=== PATIENT | female | born 1990 | race Native Hawaiian/Other Pacific Islander ===

== ENCOUNTER → 2016-12-18 | Outpatient (CLI) | payer OTHER ==
--- NOTE | 2016-12-18 11:58 | MR ---
EXAMINATION TYPE: MR knee RT wo con DATE OF EXAM: 12/18/2016 11:52 AM COMPARISON: NONE HISTORY: Right knee pain TECHNIQUE: Multiplanar, multiecho imaging of the right knee is performed without IV contrast. FINDINGS: There is only a small amount of joint fluid. There is no significant chondromalacia. There is no evidence of a meniscal tear. Both the anterior and posterior cruciate ligaments are intact. Both the medial and lateral collateral ligament complexes are intact. The iliotibial band inserts nor jaida upon Gerdy's tubercle. The popliteus muscle and tendon are normal. Both the quadriceps and patellar tendons are intact. There is no significant swelling in the Hoffa fa t space. There is no acute osseous lesion. IMPRESSION: NORMAL MRI OF THE RIGHT KNEE.
== END | disposition home or self-care (01) ==
LOC: RADMRIMAIN 10:59
PROVIDERS: ATTEND Physician Assistant
DX: M25.561 Pain in right knee (principal)

== ENCOUNTER 2017-01-24 10:44 | Emergency (ER) | payer OTHER ==
--- NOTE | 2017-01-24 11:12 | ED ---
ENT HPI - General Chief complaint: ENT Stated complaint: RT EAR SWELLING Time Seen by Provider: 01/24/17 10:58 Source: patient, RN notes reviewed Mode of arrival: ambulatory Limitations: no limitations - History of Present Illness Initial comments: This is a 26-year-old female who presents with complaints of right ear pain that started yesterday. She had a recent piercing of the tragus of her ear she did remove the piercing she was seen in outpatient clinic today and advised to come to the emergency department for further evaluation. She complains of right external ear pain some in her pain she has had no overt fevers chills or sweats however. She did receive a injection of Toradol for pain as well as clindamycin 300 mg at the clinic. She does have penicillin ALLERGY but has no other known ALLERGIES to medication she also can say she has swollen neck glands on the right side. She denies any sore throat she states the pain initially was very severe about 10/10 currently is about 2/10. No drainage no discharge. MD complaint: ear pain - Related Data Previous Rx's Medication Instructions Recorded Clindamycin [Cleocin] 300 mg PO Q6H #40 capsule 01/24/17 Ibuprofen [Motrin] 600 mg PO Q6HR PRN #20 tab 01/24/17 Allergies Allergy/AdvReac Type Severity Reaction Status Date / Time Penicillins AdvReac Rash/Hives Verified 01/24/17 11:06 Review of Systems ROS Statement: Those systems with pertinent positive or pertinent negative responses have been documented in the HPI. ROS Other: All systems not noted in ROS Statement are negative. Past Medical History Past Medical History: No Reported History History of Any Multi-Drug Resistant Organisms: None Reported Additional Past Surgical History / Comment(s): left shoulder Past Psychological History: Depression Smoking Status: Current every day smoker Past Alcohol Use History: None Reported Past Drug Use History: None Reported General Exam - General Exam Comments Initial Comments: This is a well little pulmonary awake alert oriented history female Limitations: no limitations General appearance: alert, anxious Head exam: Present: atraumatic, normocephalic Eye exam: Present: normal appearance, PERRL, EOMI Pupils: Present: normal accommodation ENT exam: Present: normal oropharynx, mucous membranes moist, TM's normal bilaterally, other (MH the external right ear reveals erythema and some edema noted to the entire year including the tragus and pinna no obvious foreign body no fluctuance no drainable abscesses. Noted discharge seen. This does extend into the external auditory canal but not down to the tympanic membrane. No exudate is seen in the canal.) Neck exam: Present: tenderness, full ROM, lymphadenopathy, other (Tender anterior cervical lymphadenopathy tender preauricular nodes). Absent: meningismus Respiratory exam: Absent: respiratory distress, wheezes, rales, rhonchi, stridor Cardiovascular Exam: Present: regular rate, normal rhythm, normal heart sounds. Absent: systolic murmur, diastolic murmur, rubs, gallop, clicks Extremities exam: Present: normal inspection, full ROM, normal capillary refill. Absent: tenderness, pedal edema, joint swelling, calf tenderness Back exam: Absent: tenderness Neurological exam: Present: alert, oriented X3, CN II-XII intact Psychiatric exam: Present: normal affect, normal mood Skin exam: Present: warm, dry, intact, other (Erythema to the external ear is noted above) Course Vital Signs 01/24/17 10:45 Temperature 100.8 F H Pulse Rate 94 Respiratory 20 Rate Blood Pressure 126/82 O2 Sat by Pulse 98 Oximetry Medical Decision Making - Medical Decision Making The patient is feeling improved at this time she'll be discharged on appropriate antibiotics and anti-inflammatories. She is a follow-up with her doctor and return if any problems or if the symptoms get worse or do not improve. - Lab Data Result diagrams: 01/24/17 11:20 01/24/17 11:20 Lab Results 01/24/17 01/24/17 01/24/17 Range/Units 11:20 11:20 11:20 WBC 10.2 (3.8-10.6) k/uL RBC 4.01 (3.80-5.40) m/uL Hgb 12.8 (11.4-16.0) gm/dL Hct 36.3 (34.0-46.0) % MCV 90.4 D (80.0-100.0) fL MCH 31.9 (25.0-35.0) pg MCHC 35.2 (31.0-37.0) g/dL RDW 12.9 (11.5-15.5) % Plt Count 211 (150-450) k/uL Neutrophils % 82 % Lymphocytes % 9 % Monocytes % 6 % Eosinophils % 1 % Basophils % 0 % Neutrophils # 8.4 H (1.3-7.7) k/uL Lymphocytes # 0.9 L (1.0-4.8) k/uL Monocytes # 0.7 (0-1.0) k/uL Eosinophils # 0.1 (0-0.7) k/uL Basophils # 0.0 (0-0.2) k/uL Sodium 140 (137-145) mmol/L Potassium 3.7 (3.5-5.1) mmol/L Chloride 107 (98-107) mmol/L Carbon Dioxide 24 (22-30) mmol/L Anion Gap 9 mmol/L BUN 9 (7-17) mg/dL Creatinine 0.56 (0.52-1.04) mg/dL Est GFR (MDRD) Af Amer >60 (>60 ml/min/1.73 sqM) Est GFR (MDRD) Non-Af >60 (>60 ml/min/1.73 sqM) Glucose 111 H (74-99) mg/dL Calcium 9.0 (8.4-10.2) mg/dL Total Bilirubin 0.4 (0.2-1.3) mg/dL AST 18 (14-36) U/L ALT 23 (9-52) U/L Alkaline Phosphatase 68 (38-126) U/L Total Creatine Kinase 208 H (30-135) U/L CK-MB (CK-2) 0.5 (0.0-2.4) ng/mL CK-MB (CK-2) Rel Index 0.2 Total Protein 7.1 (6.3-8.2) g/dL Albumin 4.1 (3.5-5.0) g/dL Disposition Clinical Impression: Otitis externa, Cellulitis of right ear Disposition: HOME SELF-CARE Condition: Good Instructions: Cellulitis (ED), Otitis Externa (ED) Prescriptions: Clindamycin [Cleocin] 300 mg PO Q6H #40 capsule Ibuprofen [Motrin] 600 mg PO Q6HR PRN #20 tab PRN Reason: Pain
[2017-01-24 11:41] LABS: Basophils % (A) 0 %; CH 31.4; CHCM 34.8; Eosinophils # (A) 0.1 k/uL (0-0.7); Eosinophils % (A) 1 %; HCT 36.3 % (34.0-46.0); HDW 2.23; HGB 12.8 gm/dL (11.4-16.0); Luc # (Auto) 0.15; Luc % (Auto) 2; Lymphocytes # (A) 0.9 k/uL (1.0-4.8); Lymphocytes % (A) 9 %; MCH 31.9 pg (25.0-35.0); MCHC 35.2 g/dL (31.0-37.0); Mean Platelet Volume 7.6; Monocytes # (A) 0.7 k/uL (0-1.0); Monocytes % (A) 6 %; Neutrophils # (A) 8.4 k/uL (1.3-7.7); Neutrophils % (A) 82 %; RBC 4.01 m/uL (3.80-5.40); RDW 12.9 % (11.5-15.5); WBC 10.2 k/uL (3.8-10.6); WBC (Perox) 10.42
[2017-01-24 11:45] LABS: MCV 90.4 fL (80.0-100.0)
[2017-01-24 11:49] LABS: ALT 23 U/L (9-52); AST 18 U/L (14-36); Alkaline Phosphatase 68 U/L (38-126); Anion Gap 9 mmol/L; Blood Urea Nitrogen 9 mg/dL (7-17); Carbon Dioxide 24 mmol/L (22-30); Chloride 107 mmol/L (98-107); Glucose 111 mg/dL (74-99); Non-African American GFR(MDRD) >60 (>60 ml/min/1.73 sqM); Potassium 3.7 mmol/L (3.5-5.1); Sodium 140 mmol/L (137-145); Total Bilirubin 0.4 mg/dL (0.2-1.3); Total Protein 7.1 g/dL (6.3-8.2)
[2017-01-24 12:13] LABS: Creatine Kinase MB 0.5 ng/mL (0.0-2.4)
[2017-01-24 12:50] VITALS: BP 107/62; PULSE 78; RESP 18; TEMP 98.1
== END 2017-01-24 12:45 | disposition home or self-care (01) ==
LOC: EC 10:44
DX: H60.91 Unspecified otitis externa, right ear (principal); H60.11 Cellulitis of right external ear; F17.200 Nicotine dependence, unspecified, uncomplicated; Z88.0 Allergy status to penicillin
CPT/HCPCS: 99283; 96365; 36415; 80053; 82550; 82553; 85025; 87040; J0696

== ENCOUNTER → 2018-02-21 | Outpatient (CLI) | payer OTHER ==
--- NOTE | 2018-02-21 15:48 | US ---
EXAMINATION TYPE: US pelvic complete DATE OF EXAM: 02/21/2018 COMPARISON: US dictated 11/06/2014 CLINICAL HISTORY: N94.6 Dysmenorrhea. TECHNIQUE: Transabdominal (TA). Date of LMP: 02/11/2018 EXAM MEASUREMENTS: Uterus: 10.0 x 3.9 x 5.4 cm Endometrial Stripe: 1.1 cm Right Ovary: 2.8 x 2.9 x 2.4 cm Left Ovary: 3.8 x 1.5 x 2.4 cm 1. Uterus: Anteverted wnl 2. Endometrium: wnl 3. Right Ovary: wnl 4. Left Ovary: wnl 5. Bilateral Adnexa: wnl 6. Posterior cul-de-sac: no free fluid Probable follicle associated with the right ovary. IMPRESSION: Small follicle associated with the right ovary. Follow-up as indicated.
== END | disposition home or self-care (01) ==
LOC: RADUSWWP 15:06
PROVIDERS: ATTEND Family Medicine
DX: N94.6 Dysmenorrhea, unspecified (principal)
CPT/HCPCS: 76856

== ENCOUNTER → 2018-02-28 | Outpatient (CLI) | payer OTHER ==
--- NOTE | 2018-02-28 16:12 | XR ---
Right hip HISTORY: Right hip pain 2 views of the right hip Bone mineralization, joint spaces and alignment are maintained. No fracture or dislocation. IMPRESSION: Normal right hip.
--- NOTE | 2018-02-28 16:13 | XR ---
Lumbar spine HISTORY: Back pain 3 views of the lumbar spine Bone mineralization, joint spaces and alignment are maintained. Disc spaces are normal. IMPRESSION: Normal lumbar spine.
== END | disposition home or self-care (01) ==
LOC: RADXRMAIN 15:36
PROVIDERS: ATTEND Physician Assistant Medical
DX: M25.551 Pain in right hip (principal); M54.5 Low back pain
CPT/HCPCS: 72100; 73502

== ENCOUNTER → 2019-05-25 | Outpatient (CLI) | payer OTHER ==
--- NOTE | 2019-05-25 13:51 | XR ---
EXAMINATION TYPE: XR cervical spine comp DATE OF EXAM: 05/25/2019 TECHNIQUE: Frontal, lateral, oblique, swimmers, and open mouth view of the cervical spine are obtaine d. HISTORY: M542 CERVICALGIA COMPARISON: None FINDINGS: The cervical spine is visualized in its entirety from C1 thru the top of T1 level, it is s atisfactory in alignment without evidence of acute fracture or dislocation. The pre-vertebral soft t issue appears within normal limits. The C1-C2 articulation is within normal limits on the open mouth view. Mild left-sided neural foraminal narrowing at C3-4. IMPRESSION: Mild left-sided neural foraminal narrowing at C3-4. If symptoms persist, MRI of the cervi davian spine may be obtained.
== END | disposition home or self-care (01) ==
LOC: RADXRYALE 13:10
PROVIDERS: ATTEND Physician Assistant
DX: M48.02 Spinal stenosis, cervical region (principal)
CPT/HCPCS: 72050

== ENCOUNTER → 2021-04-11 | Outpatient (CLI) | payer BC, OTHER | END | disposition home or self-care (01) | DX: N64.4 Mastodynia (principal) ==

== ENCOUNTER → 2021-07-28 | Outpatient (CLI) | payer BC, OTHER ==
--- NOTE | 2021-07-28 14:10 | XR ---
EXAMINATION TYPE: XR shoulder complete RT DATE OF EXAM: 07/28/2021 CLINICAL HISTORY: pain TECHNIQUE: Three views of the right shoulder are obtained. COMPARISON: None FINDINGS: There is no acute fracture/dislocation evident. The acromioclavicular and glenohumeral michele int spaces appear within normal limits. The visualized ribs are intact and unremarkable. IMPRESSION: 1. There is no acute fracture or dislocation. ICD 10 NO FRACTURE, INITIAL EVALUATION
--- NOTE | 2021-07-28 16:04 | XR ---
EXAMINATION TYPE: XR lumbosacral spine min 4V DATE OF EXAM: 07/28/2021 CLINICAL HISTORY: pain COMPARISON: NONE TECHNIQUE: Frontal, lateral, and oblique images of the lumbar spine are obtained. FINDINGS: There are 5 lumbar type vertebral bodies identified. The lumbar spine shows satisfactory alignment without evidence of acute fracture or dislocation. Vertebral body heights are within normal limits. Disc spaces are well preserved. The overlying soft tissue appears unremarkable. IMPRESSION: No acute fracture or dislocation is seen in the lumbar spine.ICD 10 NO FRACTURE, INITIAL EVALUATION
== END | disposition home or self-care (01) ==
LOC: RADXRYALE 13:10
PROVIDERS: ATTEND Family Medicine
DX: M25.511 Pain in right shoulder (principal); M54.50 Low back pain, unspecified
CPT/HCPCS: 72110

== ENCOUNTER → 2021-11-16 | Outpatient (CLI) | payer BC, OTHER ==
--- NOTE | 2021-11-16 19:47 | MR ---
EXAMINATION TYPE: MR shoulder RT wo con DATE OF EXAM: 11/16/2021 COMPARISON: None HISTORY: Right shoulder pain, no trauma. Multiplanar multiecho imaging of the right shoulder without contrast. There are small areas of increased signal in the supraspinatus tendon at this superior aspect of the humeral head consistent with intrasubstance tear. There is no full-thickness tear. There is no retrac tion. AC joint is intact. The glenohumeral joint is intact. Biceps tendon is intact. The glenoid labr a appear intact. Subscapularis tendon is intact. There is no evidence of a fracture. There is no suba cromial impingement. IMPRESSION: There is evidence of minimal intrasubstance tear of the supraspinatus tendon. No evidence of full-thi ckness tear.
== END | disposition home or self-care (01) ==
LOC: RADMRIMAIN 14:05
PROVIDERS: ATTEND Physician Assistant
DX: M75.111 Incomplete rotator cuff tear or rupture of right shoulder, not specified as traumatic (principal)

== ENCOUNTER → 2022-03-10 | Outpatient (CLI) | payer BC, OTHER ==
--- NOTE | 2022-03-10 10:35 | US ---
EXAMINATION TYPE: US abdomen complete DATE OF EXAM: 03/10/2022 COMPARISON: NONE CLINICAL HISTORY: 31-year-old female K21.00 GERD. Abdominal pain, constipation TECHNIQUE: Multiple sonographic images of the abdomen are obtained. FINDINGS: EXAM MEASUREMENTS: Liver Length: 13.1 cm Gallbladder Wall: 0.2 cm CBD: 0.4 cm Spleen: 10.1 cm Right Kidney: 10.2 x 5.0 x 4.2 cm Left Kidney: 10.6 x 4.4 x 5.1 cm Pancreas: Limited portion of the pancreatic head and neck are seen. Most of the body and tail are ob scured by bowel gas shadowing. Liver: Overall homogeneous appearance. No focal lesion. Gallbladder: wnl. No gallstones, abnormal distention, wall thickening, or pericholecystic fluid. Evidence for sonographic Del Toro's sign: no CBD: wnl Spleen: wnl Right Kidney: wnl Left Kidney: wnl Upper IVC: wnl Abd Aorta: wnl IMPRESSION: Suboptimal visualization of the pancreatic body and tail. Otherwise, unremarkable sonographic examina tion of the abdomen.
== END | disposition home or self-care (01) ==
LOC: RADUSWWP 07:39
PROVIDERS: ATTEND Family Medicine
DX: R10.9 Unspecified abdominal pain (principal)
CPT/HCPCS: 76700

== ENCOUNTER → 2023-02-03 | Outpatient (CLI) | payer BC, OTHER ==
--- NOTE | 2023-02-03 10:21 | MR ---
EXAMINATION TYPE: MR lumbar spine wo con DATE OF EXAM: 02/03/2023 COMPARISON: HISTORY: Lower back pain, radiates into buttocks x3 months. TECHNIQUE: Multiplanar, multisequence images of the lumbar spine were acquired without IV contrast. L1-L2: Normal disc appearance without desiccation. No herniation, protrusion or disc bulging. No ca nal stenosis is present. Foramina are patent bilaterally. L2-L3: Normal disc appearance without desiccation. No herniation, protrusion or disc bulging. No ca nal stenosis is present. Foramina are patent bilaterally. L3-L4: Normal disc appearance without desiccation. No herniation, protrusion or disc bulging. No ca nal stenosis is present. Foramina are patent bilaterally. L4-L5: Normal disc appearance without desiccation. No herniation, protrusion or disc bulging. No ca nal stenosis is present. Foramina are patent bilaterally. L5-S1: Normal disc appearance without desiccation. No herniation, protrusion or disc bulging. No ca nal stenosis is present. Foramina are patent bilaterally. Lumbar segments are intact. No paraspinal masses are identified. Conus medullaris has a normal appe arance. Vertebral body hemangioma T11. IMPRESSION: No evidence of disc herniation, degenerative disc disease or canal stenosis. No foraminal encroachmen t.
== END | disposition home or self-care (01) ==
LOC: RADMRIMAIN 09:20
PROVIDERS: ATTEND Physician Assistant
DX: M51.26 Other intervertebral disc displacement, lumbar region (principal); R53.1 Weakness
CPT/HCPCS: 72148

== ENCOUNTER → 2023-03-10 | Outpatient (CLI) | payer BC, OTHER ==
[2023-03-10 13:51] LABS: Basophils # (A) 0.03 X 10*3/uL (0.00-0.10); Basophils % (A) 0.5 %; Eosinophils # (A) 0.08 X 10*3/uL (0.04-0.35); Eosinophils % (A) 1.2 %; HCT 38.8 % (37.2-46.3); HGB 12.5 g/dL (12.0-15.0); Immature Grans, Automated 0.3 %; Lymphocytes # (A) 1.44 X 10*3/uL (0.90-5.00); Lymphocytes % (A) 22.1 %; MCH 29.3 pg (27.0-32.0); MCHC 32.2 g/dL (32.0-37.0); MCV 90.9 fL (80.0-97.0); Mean Platelet Volume 11.2 fL (9.5-12.2); Monocytes # (A) 0.34 X 10*3/uL (0.20-1.00); Monocytes % (A) 5.2 %; NRBC Per 100 WBC 0 /100 WBCS (0.0-0.0); Neutrophils # (A) 4.61 X 10*3/uL (1.80-7.70); Neutrophils % (A) 70.7 %; Platelet Count 316 X 10*3/uL (140-440); RBC 4.27 X 10*6/uL (4.10-5.20); RDW 13.3 % (11.5-14.5); WBC 6.52 X 10*3/uL (4.50-10.00)
[2023-03-10 14:48] LABS: Blood Urea Nitrogen 15.5 mg/dL (9.0-27.0); Potassium 4.8 mmol/L (3.5-5.5)
== END | disposition home or self-care (01) ==
LOC: LABPAT 07:42
PROVIDERS: ATTEND Obstetrics & Gynecology Obstetrics
DX: Z01.812 Encounter for preprocedural laboratory examination (principal); N92.0 Excessive and frequent menstruation with regular cycle; N94.10 Unspecified dyspareunia; R10.2 Pelvic and perineal pain
CPT/HCPCS: 36415; 80051; 82565; 82947; 84520; 85025; 86850; 86900; 86901; 87086

== ENCOUNTER 2023-03-16 06:39 | Day surgery (SDC) | payer BC, OTHER ==
[2023-03-11 14:38] VITALS: BMI 23.4
[~2023-03-16 06:39] MED LIST: DEXAMETHASONE SOD PHOSPHATE 4 MG/ML 1 ML VIAL IV ONE; HYDROmorphone 0.5 MG/0.5 ML SYRINGE IVP PRN; ONDANSETRON 4 MG/2 ML VIAL IVP ONE
[2023-03-16] MEDS: LACTATED RINGERS 1,000 ML IV SCH (07:13)
[2023-03-16] MEDS ORDERED: ROCURONIUM 10 MG/ML (5 ML VIAL) IV ONE (09:14)
[2023-03-16] MEDS ORDERED: MIDAZOLAM 2 MG/2 ML VIAL ONE (09:14)
[2023-03-16] MEDS ORDERED: LIDOCAINE 2% INJ 20 MG/ML (2 ML VIAL) ONE (09:14)
[2023-03-16] MEDS ORDERED: SUCCINYLCHOLINE CHLORIDE 200 MG/10 ML VIAL IV ONE (09:14)
[2023-03-16] MEDS ORDERED: KETAMINE 10 MG/ML 20 ML VIAL ONE (09:14)
[2023-03-16] MEDS ORDERED: PROPOFOL 10 MG/ML 20 ML VIAL IV ONE (09:14)
[2023-03-16] MEDS ORDERED: fentaNYL (PF) 50 MCG/ML 2 ML AMP ONE (09:14)
[2023-03-16] MEDS ORDERED: NEOSTIGMINE 1 MG/ML 10 ML VIAL ONE (09:14)
[2023-03-16] MEDS ORDERED: GLYCOPYRROLATE 0.2 MG/ML 2 ML VIAL ONE (09:14)
[2023-03-16] MEDS ORDERED: BUPIVACAINE (PF) 0.25% 30 ML VIAL SQ ONE ×2 (10:01)
[2023-03-16] MEDS ORDERED: ACETAMINOPHEN IV (For NPO) 1,000 MG in EMPTY BAG 1 BAG IVPB ONE (10:45)
[2023-03-16] MEDS ORDERED: ONDANSETRON 4 MG/2 ML VIAL IVP PRN (10:45)
[2023-03-16] MEDS ORDERED: Acetaminophen-Codeine 300-30mg TAB PO PRN ×2 (10:45)
[2023-03-16] MEDS ORDERED: diphenhydrAMINE 50 MG/ML 1 ML VIAL IVP PRN (10:45)
[2023-03-16] MEDS ORDERED: LACTATED RINGERS 1,000 ML IV ONE (10:47)
--- NOTE | 2023-03-16 10:53 | P.OP ---
Date of Procedure: 03/16/23 Preoperative Diagnosis: Pelvic pain, failed medical treatment, dyspareunia Postoperative Diagnosis: Same Procedure(s) Performed: Robotic-assisted vaginal hysterectomy, bilateral salpingectomy, diagnostic cystoscopy Anesthesia: ANGEL Surgeon: Bethany Be Piano Accompanist #1: Jennifer Santiago Estimated Blood Loss (ml): 10 IV fluids (ml): 1,000 Urine output (ml): 100 (Clear yellow) Pathology: other (Uterus, cervix, bilateral fallopian tubes) Condition: stable Disposition: PACU Indications for Procedure: Increasing pelvic pain despite medical treatment. Patient is done with childbearing and wishes definitive treatment. Operative Findings: Globular uterus, bilateral ovaries noted to be grossly normal. On cystoscopy bladder was intact with bladder bubble appreciated both ureteral orifices noted be spilling clear yellow urine. Description of Procedure: Patient was taken back to the operating suite where general anesthesia was obtained without difficulty by the anesthesia department. She was prepped and draped in the normal sterile fashion in the dorsal lithotomy position. A Rousseau catheter was placed under sterile technique. A weighted speculum was placed in the posterior vaginal vault, the anterior lip of the cervix was then visualized grasped with a single-tooth tenaculum. Endocervical canal was then serially dilated. The V care manipulator was opened and placed in the usual fashion. The balloon was insufflated with air and the cervical cap was placed snugly against the cervix. At this time all instruments were removed from the patient's vaginal vault. Attention was then turned to the patient's abdomen where 2 finger breaths above the umbilicus a small skin incision is made. Through this incision the Veress needles placed. Once the Veress needle was deemed to be in the proper position with a drop of CO2 pressure with insufflation of CO2 gas CO2 insufflation was allowed to occur. An 8 mm trocar and sleeve is placed through this incision with the laparoscope in place. The above-noted findings are visualized. Additional port sites are placed 10 cm lateral and 37 m inferior to midline port these are operative ports placed through the da Red machine. In the right operative arm the monopolar scissors is placed in the left operative arm the bipolar forceps is placed. In the left upper quadrant a 12 mm trocar and sleeve is placed under direct visualization. At this time the da Red robot was docked in the usual fashion. The operative arms are now placed in the right upper operative arm the monopolar scissors, left operative arm is the bipolar forceps. Attention was then turned to the left fallopian tube which was grasped and the mesosalpinx was coagulated to the uterine ovarian ligament. The uterine ovarian ligament was then coagulated distally and proximally and divided. The round ligament was then grasped coagulated distally and proximal plane divided. Hemostasis noted throughout. The bladder flap from the left was then created using sharp and blunt dissection. The ascending branch the uterine artery was visualized coagulated and transected. Hemostasis was noted. Attention was then turned the patient's right fallopian tube which was elevated and mesosalpinx was coagulated to the uterine ovarian ligament. The utero-ovarian ligament was coagulated distally and proximally and divided. The round was visualized coagulated and transected. Hemostasis was noted. The bladder flap from the right was then created using sharp and blunt dissection. The ascending branch the uterine artery was visualized coagulated and transected. Hemostasis was noted. A Ray-Kitty was then placed into the abdomen to further dissect the bladder away from the surgical field. This was then removed. At this time the only remaining attachment was a vaginal attachment therefore a colpotomy incision was performed. The uterus and bilateral fallopian tubes were delivered through the vaginal opening. The vaginal cuff was then closed with multiple [id number] sutures of 0 Vicryl. Approximate 5 sutures were used to obtain closure. The pelvis was then copiously irrigated and the vaginal cuff was noted to be hemostatic. At this time all instruments were removed from the patient's abdomen. Attention was then turned the patient's Rousseau catheter which was removed without difficulty. A cystoscope was performed. Cystoscope was placed through the urethra and toward the bladder bladder bubble was appreciated clear. A complete survey of the bladder revealed intact mucosa. Both ureteral orifices were spilling clear yellow urine. The cystoscope was removed and the Rousseau catheter was replaced. Attention was then turned to the patient's abdomen where the skin incisions were closed with 4-0 Vicryl in a subcuticular fashion. Surgery strips and sterile dressings were applied. All counts were noted correct 2 at the end of the procedure. Patient tolerated procedure well and was taken the recovery room awake in stable condition.
--- NOTE | 2023-03-16 10:59 | P.HPOB ---
History of Present Illness H&P Date: 03/16/23 Chief Complaint: Pelvic pain, failed medical management, dyspareunia This is a 32yo that presents for scheduled RAVH, bilateral salpingectomy with possible BSO, DC. she has struggled with pelvic pain for some time and has failed OCP use. she continues to have pain despite medical management. she is also noting increasing dyspareunia and pain with orgasm in addition she is done with childbearing and desires definitive treatment with hysterectomy. She notes menses to be regular moderate flow, painful in nature. I am suspicious of endometriosis. US done revealing a normal in size [id number], ovaries normal with follicles. Review of Systems Constitutional: Denies chills, Denies fatigue, Denies fever Ears, nose, mouth and throat: Reports headache Cardiovascular: Denies leg edema Respiratory: Denies dyspnea Gastrointestinal: Denies constipation, Denies diarrhea, Denies nausea, Denies vomiting Genitourinary: Reports dyspareunia, Reports pelvic pain, Denies Past Medical History Past Medical History: GERD/Reflux Additional Past Medical History / Comment(s): SEASONAL ALLERGIES. MENSTRUAL CYCLE VERY PAINFUL History of Any Multi-Drug Resistant Organisms: None Reported Past Surgical History: Orthopedic Surgery Additional Past Surgical History / Comment(s): left shoulder SX Past Anesthesia/Blood Transfusion Reactions: No Reported Reaction Smoking Status: Current every day smoker - Past Family History Mother Family Medical History: Cancer Medications and Allergies Home Medications Medication Instructions Recorded Confirmed Type Escitalopram [Lexapro] 20 mg PO DAILY 03/11/23 03/16/23 History Loratadine [Claritin] 10 mg PO DAILY 03/11/23 03/16/23 History Pantoprazole Sodium [Protonix] 20 mg PO DAILY 03/11/23 03/16/23 History norethindrone-e.estradioL-iron 1 each PO DAILY 03/11/23 03/16/23 History [Junel Fe 1.5 mg-30 Mcg Tablet] Allergies Allergy/AdvReac Type Severity Reaction Status Date / Time Penicillins AdvReac Rash/Hives Verified 03/16/23 08:07 Exam Osteopathic Statement: *. No significant issues noted on an osteopathic structural exam other than those noted in the History and Physical/Consult. Vital Signs Temp Pulse Resp BP Pulse Ox 03/16/23 07:10 98.5 F 71 16 119/69 98 Intake and Output 03/15/23 03/16/23 03/16/23 22:59 06:59 14:59 Other: Weight 55.34 kg This is a 32 yo well nourished and well developed female in no acute distress, breathing is noted to be non labored, heart is regular rate rhythm, abdomen is soft and non tender. external genitalia is noted to be normal in nature, vaginal mucosa is pink and well rugated, cervix is without lesion, uterus is mobile and small no adnexal masses are appreciated. Assessment and Plan (1) Pelvic pain Narrative/Plan: suspicion for endometriosis Current Visit: Yes Status: Acute Code(s): R10.2 - PELVIC AND PERINEAL PAIN SNOMED Code(s): 72333760 (2) Dyspareunia Current Visit: Yes Status: Acute Code(s): VAR9389 - SNOMED Code(s): 86095779 Plan: 32 yo that presents for RAVH, bilateral salpingectomy, diagnostic cystoscopy, possible open. r/b/s reviewed all questions answered.
[2023-03-16] MEDS ORDERED: IBUPROFEN IV 800 MG in SODIUM CHLORIDE 0.9% 250 ML IV ONE (12:30)
[2023-03-16 14:26] VITALS: RESP 16
[2023-03-16] MEDS: SIMETHICONE 80 MG CHEWABLE PO PRN (20:06)
[2023-03-16] MEDS: SENNOSIDES-DOCUSATE SODIUM 1 EACH TAB PO SCH (20:07)
[2023-03-16] MEDS: IBUPROFEN 600 MG TAB PO PRN (23:11)
[2023-03-17] MEDS: IBUPROFEN 600 MG TAB PO PRN (05:41)
[2023-03-17] MEDS: LACTATED RINGERS 1,000 ML IV SCH (05:50)
[2023-03-17 07:24] LABS: Basophils % (A) 0 %; Eosinophils % (A) 0 %; HCT 36.8 % (34.0-46.0); HGB 12.2 gm/dL (11.4-16.0); Lymphocytes # (A) 2.3 k/uL (1.0-4.8); Lymphocytes % (A) 20 %; MCH 29.7 pg (25.0-35.0); MCHC 33.2 g/dL (31.0-37.0); MCV 89.3 fL (80.0-100.0); Monocytes # (A) 0.6 k/uL (0-1.0); Monocytes % (A) 5 %; Neutrophils # (A) 8.5 k/uL (1.3-7.7); Neutrophils % (A) 73 %; Platelet Count 275 k/uL (150-450); RBC 4.12 m/uL (3.80-5.40); RDW 13.2 % (11.5-15.5); WBC 11.6 k/uL (3.8-10.6)
[2023-03-17 08:21] VITALS: BP 125/80; PULSE 85; TEMP 98.5
--- NOTE | 2023-03-17 08:49 | P.DS ---
Providers Date of admission: 03/16/2023 Expected date of discharge: 03/17/23 Attending physician: Bethany Be Primary care physician: Eladio Salcedo - Discharge Diagnosis(es) (1) Pelvic pain Current Visit: Yes Status: Acute (2) Dyspareunia Current Visit: Yes Status: Acute (3) S/P hysterectomy Current Visit: Yes Status: Acute Hospital Course: 32-year-old patient that presented to the hospital yesterday for scheduled robotic cyst vaginal hysterectomy with bilateral salpingectomy, diagnostic cystoscopy. Patient has a history of pelvic pain and painful periods unrelieved with medical management. Patient is done with childbearing and wishes definitive treatment. For full details on this patient please see the dictated history and physical. Patient was taken back to the operating room where robotic cyst vaginal hysterotomy with bilateral salpingectomy, diagnostic cystoscopy was performed without difficulty. Patient did well during the procedure patient were appreciated. On this postoperative day #1 she is ambulating and voiding without difficulty. She is noting increased gas pain and instructions for increased ambulation and simethicone are discussed. We will advance diet to regular. Patient does well this morning with pain and diet will discharge home later this morning. Routine discharge instructions are discussed with patient. Multiple questions are answered. Patient is given bleeding precautions. Patient is asked to call the office in 2 weeks for a routine postoperative visit. Should she have any concerns prior to that she is asked call the office. Patient Condition at Discharge: Good Plan - Discharge Summary Discharge Rx Participant: Yes New Discharge Prescriptions: No Action Escitalopram [Lexapro] 20 mg PO DAILY Pantoprazole Sodium [Protonix] 20 mg PO DAILY Loratadine [Claritin] 10 mg PO DAILY norethindrone-e.estradioL-iron [Junel Fe 1.5 mg-30 Mcg Tablet] 1 each PO DAILY Discharge Medication List Escitalopram [Lexapro] 20 mg PO DAILY 03/11/23 [History] Loratadine [Claritin] 10 mg PO DAILY 03/11/23 [History] Pantoprazole Sodium [Protonix] 20 mg PO DAILY 03/11/23 [History] norethindrone-e.estradioL-iron [Junel Fe 1.5 mg-30 Mcg Tablet] 1 each PO DAILY 03/11/23 [History] Follow up Appointment(s)/Referral(s): Bethany Be DO [Doctor of Osteopathic Medicine] - 2 Weeks Patient Instructions/Handouts: Laparoscopic Hysterectomy (DC), Laparoscopic Hysterectomy (GEN) Activity/Diet/Wound Care/Special Instructions: Tub baths or intercourse until 8 weeks postoperatively. Patient is to the office for routine postoperative visit in 2 weeks. Bleeding precautions are reviewed. She should have any concerns prior to this appointment she is asked call the office.
[2023-03-17] MEDS: SIMETHICONE 80 MG CHEWABLE PO PRN (09:44)
[2023-03-17] MEDS: SENNOSIDES-DOCUSATE SODIUM 1 EACH TAB PO SCH (10:40)
[2023-03-17] MEDS ORDERED: ACETAMINOPHEN TAB 325 MG TAB PO PRN (10:47)
== END 2023-03-17 11:15 ==
LOC: OR 06:39 → 4FBP 11:00 → OR 03-17 11:15
PROVIDERS: ATTEND Obstetrics & Gynecology Obstetrics
DX: N72 Inflammatory disease of cervix uteri (principal); N94.10 Unspecified dyspareunia; K21.9 Gastro-esophageal reflux disease without esophagitis; F41.9 Anxiety disorder, unspecified; F17.210 Nicotine dependence, cigarettes, uncomplicated; Z98.890 Other specified postprocedural states; Z80.8 Family history of malignant neoplasm of other organs or systems; Z79.899 Other long term (current) drug therapy; Z88.0 Allergy status to penicillin
CPT/HCPCS: 58552; S2900; 81025; 85025; 88307

== ENCOUNTER → 2024-01-21 | Outpatient (CLI) | payer BC, OTHER ==
--- NOTE | 2024-01-21 10:18 | XR ---
EXAMINATION TYPE: XR shoulder complete RT DATE OF EXAM: 01/21/2024 COMPARISON: NONE HISTORY: Pain TECHNIQUE: Three views are submitted. FINDINGS: The osseous structures are intact. There is no acute fracture or dislocation. The AC joint is measu res 4 mm. Within normal limits. Clavicle may be slightly elevated to the acromion. IMPRESSION: 1. Slight elevation of the clavicle relative to the acromion. If there is concern for AC joint injury correlate with dedicated AC joint series with and without weights.
== END | disposition home or self-care (01) ==
LOC: RADXRYALE 08:48
PROVIDERS: ATTEND Physician Assistant
DX: M25.811 Other specified joint disorders, right shoulder (principal)

== ENCOUNTER → 2024-01-27 | Outpatient (CLI) | payer BC, OTHER ==
--- NOTE | 2024-01-27 20:07 | MR ---
EXAMINATION TYPE: MR shoulder RT wo con DATE OF EXAM: 01/27/2024 COMPARISON: 11/16/2021 HISTORY: Rt shoulder pain TECHNIQUE: Multiplanar, multisequence imaging of the right shoulder is performed without contrast. FINDINGS: As noted on the prior study there is some mild irregular signal within the supraspinatus tendon just distal to the musculotendinous junction consistent with small intrasubstance tears and mild tendinosi s. There is no full-thickness tear of no retraction of the musculotendinous junction. The subscapular is and infraspinatus tendons are intact. There is no significant degeneration of the AC joint and glenohumeral joint there are no joint effusi ons. There are no focal osseous lesions. The biceps tendon is normal in signal intensity and position within the bicipital groove and the kasie ps anchor is intact. The cartilaginous labrum is grossly intact. There is no subacromial or subdeltoid bursitis. IMPRESSION: 1. Mild tendinosis and few small intrasubstance tears of supraspinatus without full-thickness tear or retraction of the musculotendinous junction. 2. No other significant abnormality seen. 3. No significant interval change compared to previous.
== END | disposition home or self-care (01) ==
LOC: RADMRIMAIN 18:19
PROVIDERS: ATTEND Family Medicine
DX: M67.813 Other specified disorders of tendon, right shoulder (principal); M75.101 Unspecified rotator cuff tear or rupture of right shoulder, not specified as traumatic